=== PATIENT | female | born 1950 | race Caucasian/White ===

== ENCOUNTER → 2017-05-02 15:01 | Outpatient (CLI) | payer MEDICARE, OTHER | END | disposition home or self-care (01) | LOC: D.MAMMO 08:15 | DX: Z12.31 Encounter for screening mammogram for malignant neoplasm of breast (principal) ==

== ENCOUNTER → 2017-07-05 12:18 | Outpatient (CLI) | payer MEDICARE, OTHER | END | disposition home or self-care (01) | LOC: D.LABREF 12:18 | DX: E78.2 Mixed hyperlipidemia (principal); F19.939 Other psychoactive substance use, unspecified with withdrawal, unspecified; F41.9 Anxiety disorder, unspecified ==

== ENCOUNTER → 2018-08-21 09:28 | Outpatient (CLI) | payer MEDICARE, OTHER | END | disposition home or self-care (01) | LOC: D.CT 09:28 | DX: R20.2 Paresthesia of skin (principal) ==

== ENCOUNTER → 2019-04-03 15:00 | Outpatient (CLI) | payer MEDICARE, OTHER | END | disposition home or self-care (01) | LOC: D.MAMMO 15:00 | PROVIDERS: ATTEND Family Medicine | DX: Z12.31 Encounter for screening mammogram for malignant neoplasm of breast (principal) ==

== ENCOUNTER 2019-05-06 15:00 | Outpatient (CLI) | payer MEDICARE | END 2019-05-06 15:30 | disposition home or self-care (01) | LOC: D.MAMMO 15:00 | PROVIDERS: ATTEND Family Medicine | DX: R92.8 Other abnormal and inconclusive findings on diagnostic imaging of breast (principal) ==

== ENCOUNTER 2021-01-18 13:45 | Outpatient (CLI) | payer MEDICARE | END 2021-01-18 14:15 | disposition home or self-care (01) | LOC: D.MAMMO 13:45 | PROVIDERS: ATTEND Family Medicine | DX: Z12.31 Encounter for screening mammogram for malignant neoplasm of breast (principal) ==